=== PATIENT | male | born 1960 | race Caucasian/White ===

== ENCOUNTER → 2017-05-27 | Outpatient (CLI) | payer BC | LOC: BICRAD 13:06 | PROVIDERS: ATTEND Physician Assistant Medical | DX: M25.511 Pain in right shoulder (principal); M25.512 Pain in left shoulder; M25.811 Other specified joint disorders, right shoulder ==

== ENCOUNTER 2024-02-15 12:59 | Inpatient (IN) | payer BC ==
[2024-02-15 13:48] VITALS: BMI 28.5
[2024-02-15 13:57] LABS: Anion Gap 13 mmol/L (10-20); BUN (Urea Nitrogen) 18 mg/dL (8.4-25.7); Calc. Creatinine Clearance 73 mL/min (70-130); Carbon Dioxide 28 mmol/L (23-31); Chloride 107 mmol/L (98-107); Estimated GFR 67; Glucose 86 mg/dL (80-115); Sodium 144 mmol/L (136-145)
[2024-02-15] MEDS: Dofetilide 0.125 MG CAP PO SCH (14:27)
[2024-02-15 14:30] LABS: Magnesium 2.1 mg/dL (1.6-2.6)
[2024-02-15] MEDS ORDERED: Scopolamine 1 mg/72 hour Patch TD PRN (16:25)
[2024-02-15] MEDS: Magnesium 2 GM/50 ML(in water) 2 GM in Premix 1 BAG IVPB SCH (17:18)
[2024-02-15] MEDS: Apixaban 5 MG TAB PO SCH (21:24)
[2024-02-16 04:02] LABS: #Basophils 0.08 10x3/uL (0.0-0.2); %Eosinophils 4.9 % (0.0-10.0); %Lymphocytes 38.5 % (21.0-51.0); %Monocytes 13.7 % (0.0-10.0); %Neutrophils 40.9 % (42.0-75.0); Hematocrit 40.2 % (42.0-52.0); Hemoglobin 13.2 g/dL (14.0-18.0); Mean Corpuscular HGB CONC 32.8 g/dL (32.0-36.0); Mean Corpuscular Hemoglobin 30.3 pg (27.0-31.0); Mean Corpuscular Volume 92.2 fL (78.0-98.0); Mean Platelet Volume 9.7 fL (7.4-10.4); Platelet Count 221 10x3/uL (130-400); RBC Distribution Width 11.9 % (11.5-14.5); Red Blood Cell (RBC) Count 4.36 mill/uL (4.70-6.10)
[2024-02-16 04:51] LABS: Anion Gap 11 mmol/L (10-20); BUN (Urea Nitrogen) 16 mg/dL (8.4-25.7); Calc. Creatinine Clearance 75 mL/min (70-130); Calcium 8.4 mg/dL (7.8-10.44); Carbon Dioxide 26 mmol/L (23-31); Chloride 110 mmol/L (98-107); Estimated GFR 69; Glucose 110 mg/dL (80-115); Potassium 4.4 mmol/L (3.5-5.1); Sodium 143 mmol/L (136-145)
[2024-02-16] MEDS ORDERED: Dofetilide 0.125 MG CAP PO SCH (07:00)
[2024-02-16] MEDS: Dofetilide 0.125 MG CAP PO SCH (07:42)
[2024-02-16] MEDS: Amlodipine 5 MG TAB PO SCH (07:45)
[2024-02-16] MEDS: Rosuvastatin 20 MG TAB PO SCH (20:13)
[2024-02-16] MEDS: Acetaminophen 325 MG TAB PO PRN (20:39)
[2024-02-17 04:56] VITALS: TEMP 97.8
[2024-02-17] MEDS ORDERED: Lidocaine 1% PF 5 ML VIAL ONE (08:35)
[2024-02-17] MEDS ORDERED: PROPOFOL 200 MG/20 ML VIAL ONE (08:35)
[2024-02-17 13:00] VITALS: BP 117/79
== END 2024-02-17 13:10 | disposition home or self-care (01) | DRG 310 ==
LOC: 2SW 12:59
PROVIDERS: ADMIT Internal Medicine; ATTEND Family Medicine
PROC: 5A2204Z Restoration of Cardiac Rhythm, Single (ICD-10-PCS; principal; 2024-02-17)
DX: I48.19 Other persistent atrial fibrillation (principal); I10 Essential (primary) hypertension; K21.9 Gastro-esophageal reflux disease without esophagitis; I25.10 Atherosclerotic heart disease of native coronary artery without angina pectoris; E78.00 Pure hypercholesterolemia, unspecified; Z88.1 Allergy status to other antibiotic agents; Z79.01 Long term (current) use of anticoagulants; Z88.2 Allergy status to sulfonamides; Z90.49 Acquired absence of other specified parts of digestive tract
CPT/HCPCS: 36415; 80048; 83735; 85025; 92960; 93005; 93010; J2704; J3475; J8499